=== PATIENT | female | born 1975 | race Caucasian/White ===

== ENCOUNTER → 2018-07-15 18:14 | Outpatient (CLI) | payer MEDICAID, SELFPAY ==
[2018-07-15 18:52] LABS: Basophils % 0.5 % (0.1-2.0); Eosinophils % 0.5 % (0.1-12.0); Hematocrit 39.1 % (37.0-47.0); Hemoglobin 12.9 g/dL (12.2-16.2); Lymphocytes # 2.1 K/mm3 (0.7-4.5); Lymphocytes % 24.7 % (10-50); Mean Corpuscular Hemoglobin 30.1 pg (27.0-31.2); Mean Corpuscular Volume 91.3 fl (81-99); Mean Platelet Volume 9.3 fl (7.4-10.4); Monocytes # 0.4 K/mm3 (0.1-1.0); Monocytes % 4.2 % (1.7-9.3); Neutrophils % 70.1 % (37.0-80.0); Platelet Count 294 K/mm3 (142-424); Red Blood Count 4.29 M/mm3 (4.20-5.40); Red Cell Distribution Width 13.4 % (11.5-17.5); White Blood Count 8.5 K/mm3 (4.8-10.8)
[2018-07-15 19:22] LABS: Alanine Aminotransferase 22 U/L (12-78); Albumin Level 4.2 gm/dL (3.4-5.0); Albumin/Globulin Ratio 1.2 (1.1-1.8); Alkaline Phosphatase 110 U/L (46-116); Anion Gap 14.3 mEq/L (5-15); Aspartate Amino Transferase 18 U/L (15-37); Bilirubin,Total 0.4 mg/dL (0.2-1.0); Blood Urea Nitrogen 6 mg/dL (7-18); Calcium 8.9 mg/dL (8.5-10.1); Carbon Dioxide 29 mmol/L (21.0-32.0); Chloride 102 mmol/L (98-107); Chol/HDL Ratio 4.8 (1-3.5); Cholesterol 152 mg/dL (140-200); Creatinine,Serum 0.67 mg/dL (0.55-1.02); Estimated Glomerular Filt Rate 97 ml/min (>60); Free T4 (Free Thyroxine) 1.02 ng/dl (0.76-1.46); GFR (African American) 117 ML/MIN (>60); Globulin 3.5 gm/dl (1.3-3.2); Glucose 105 mg/dL (74-106); HDL Cholesterol 32 mg/dL (29-89); LDL Cholesterol 102 mg/dL (0-130); Potassium 3.3 mmoL/L (3.5-5.1); Sodium 142 mmol/L (136-145); Thyroid Stimulating Hormone 0.12 uIU/ml (0.358-3.740); Total Protein,Serum 7.7 gm/dL (6.4-8.2); Triglycerides 91 mg/dL (30-200); VLDL Cholesterol 18 mg/dL (0-40)
[2018-07-17 08:18] LABS: Hep A Ab, IgM Negative (Negative); Hepatitis B Core Antibody IgM Negative (Negative); Hepatitis B Surface Antigen Negative (Negative)
[2018-07-17 10:06] LABS: Hepatitis C Antibody <0.1 s/co ratio (0.0-0.9); Vitamin D 25 Hydroxy 23.5 ng/mL (30.0-100.0)
== END ==
PROVIDERS: PCP Emergency Medicine; Visit Provider Emergency Medicine
DX: I10 Essential (primary) hypertension (principal); E55.9 Vitamin D deficiency, unspecified
CPT/HCPCS: 80053; 80061; 80074; 82652; 84439; 84443; 85025

== ENCOUNTER → 2018-07-27 11:24 | Outpatient (CLI) | payer MEDICAID, SELFPAY ==
[2018-07-27 14:04] LABS: Anion Gap 15.8 mEq/L (5-15); Blood Urea Nitrogen 3 mg/dL (7-18); Calcium 8.4 mg/dL (8.5-10.1); Carbon Dioxide 25 mmol/L (21.0-32.0); Chloride 103 mmol/L (98-107); Creatinine,Serum 0.77 mg/dL (0.55-1.02); Estimated Glomerular Filt Rate 82 ml/min (>60); GFR (African American) 99 ML/MIN (>60); Glucose 101 mg/dL (74-106); Potassium 3.8 mmoL/L (3.5-5.1); Sodium 140 mmol/L (136-145); Thyroid Stimulating Hormone 0.34 uIU/ml (0.358-3.740)
== END ==
PROVIDERS: Visit Provider Physician Assistant
DX: E87.6 Hypokalemia (principal); R79.89 Other specified abnormal findings of blood chemistry
CPT/HCPCS: 36415; 80048; 84443

== ENCOUNTER → 2018-08-27 17:25 | Outpatient (CLI) | payer MEDICAID, SELFPAY ==
[2018-08-27 18:23] LABS: Amphetamine/Metha Screen,Urine Negative ng/mL (<1000); Barbiturates Screen,Urine Negative ng/mL (<200); Benzodiazepines Screen,Urine Positive ng/mL (<200); Cannabinoid Screen,Urine Positive ng/mL (<50); Cocaine Screen,Urine Negative ng/mL (<300); Methadone Screen,Urine Negative ng/mL (<300); Opiate Screen,Urine Negative ng/mL (<300); Phencyclidine Screen,Urine Negative ng/mL (<25)
[2018-09-04 09:13] LABS: Alprazolam Negative (Cutoff=100); Benzodiazepines Positive ng/mL (Cutoff=100); Clonazepam Positive (.); Flurazepam Negative (Cutoff=100); Lorazepam Negative (Cutoff=100); Midazolam Negative (Cutoff=100); Temazepam Negative (Cutoff=100); Triazolam Negative (Cutoff=100)
[2018-09-04 14:42] LABS: Clonazepam Confirm 825 ng/mL (Cutoff=100)
== END ==
PROVIDERS: Visit Provider Emergency Medicine
DX: Z79.899 Other long term (current) drug therapy (principal); F41.9 Anxiety disorder, unspecified
CPT/HCPCS: 80305; 80346

== ENCOUNTER → 2018-12-03 17:00 | Outpatient (CLI) | payer SELFPAY ==
[2018-12-04 11:51] LABS: Amphetamine/Metha Screen,Urine Negative ng/mL (<1000); Barbiturates Screen,Urine Negative ng/mL (<200); Benzodiazepines Screen,Urine Negative ng/mL (<200); Cannabinoid Screen,Urine Positive ng/mL (<50); Cocaine Screen,Urine Negative ng/mL (<300); Methadone Screen,Urine Negative ng/mL (<300); Opiate Screen,Urine Negative ng/mL (<300); Phencyclidine Screen,Urine Negative ng/mL (<25)
[2018-12-10 09:10] LABS: Alprazolam Negative (Cutoff=100); Benzodiazepines Positive ng/mL (Cutoff=100); Clonazepam Positive (.); Flurazepam Negative (Cutoff=100); Lorazepam Negative (Cutoff=100); Midazolam Negative (Cutoff=100); Temazepam Negative (Cutoff=100); Triazolam Negative (Cutoff=100)
[2018-12-12 17:01] LABS: Clonazepam Confirm 114 ng/mL (Cutoff=100)
== END ==
LOC: LAB.DROPOF 12-04 08:10
PROVIDERS: Visit Provider Emergency Medicine
DX: F41.9 Anxiety disorder, unspecified (principal)
CPT/HCPCS: 80305; 80346

== ENCOUNTER → 2019-03-21 09:45 | Outpatient (CLI) | payer OTHER, SELFPAY | PROVIDERS: PCP Emergency Medicine; Visit Provider Emergency Medicine | DX: J44.9 Chronic obstructive pulmonary disease, unspecified (principal) | CPT/HCPCS: 94060; 94618; 94726; 94729 ==

== ENCOUNTER → 2019-09-15 17:22 | Outpatient (CLI) | payer OTHER, SELFPAY ==
[2019-09-15 18:02] LABS: Basophils # 0.1 K/mm3 (0-0.2); Basophils % 0.5 % (0.1-2.0); Eosinophils # 0.1 K/mm3 (0.0-0.4); Eosinophils % 1.1 % (0.1-12.0); Hematocrit 39.5 % (37.0-47.0); Hemoglobin 12.9 g/dL (12.2-16.2); Lymphocytes # 2.9 K/mm3 (0.7-4.5); Lymphocytes % 26.7 % (10-50); Mean Corpuscular HGB Conc 32.7 g/dL (31.8-35.4); Mean Corpuscular Hemoglobin 30.4 pg (27.0-31.2); Mean Platelet Volume 9.6 fl (7.4-10.4); Monocytes # 0.7 K/mm3 (0.1-1.0); Monocytes % 6.1 % (1.7-9.3); Neutrophils # 7.1 K/mm3 (1.8-7.8); Neutrophils % 65.7 % (37.0-80.0); Platelet Count 297 K/mm3 (142-424); Red Blood Count 4.25 M/mm3 (4.20-5.40); Red Cell Distribution Width 13.9 % (11.5-17.5); White Blood Count 10.8 K/mm3 (4.8-10.8)
[2019-09-15 18:47] LABS: Alanine Aminotransferase 13 U/L (12-78); Albumin Level 4.4 g/dl (3.5-5.0); Albumin/Globulin Ratio 1.5 (1.1-1.8); Alkaline Phosphatase 106 U/L (38-126); Anion Gap 12.8 mEq/L (5-15); Aspartate Amino Transferase 28 U/L (14-36); Bilirubin,Total 0.5 mg/dl (0.2-1.3); Blood Urea Nitrogen 9 mg/dl (7-17); Calcium 9.4 mg/dl (8.4-10.2); Carbon Dioxide 27 mmol/L (22.0-30.0); Chloride 106 mmol/L (98-107); Chol/HDL Ratio 3.6 (1-3.5); Cholesterol 169 mg/dl (140-200); Estimated Glomerular Filt Rate 109 ml/min (>60); GFR (African American) 132 ML/MIN (>60); Globulin 2.9 g/dL (1.3-3.2); Glucose 65 mg/dl (74-100); HDL Cholesterol 47 mg/dl (40-60); Potassium 3.8 mmoL/L (3.5-5.1); Sodium 142 mmol/L (136-145); Total Protein,Serum 7.3 g/dl (6.3-8.2); Triglycerides 131 mg/dl (30-150); VLDL Cholesterol 26 mg/dL (0-40)
[2019-09-15 18:59] LABS: Direct LDL Cholesterol 100.15 mg/dL (100-129)
[2019-09-15 19:05] LABS: 25-OH Vitamin D, Total 42.5 ng/mL (30-100); Free T4 (Free Thyroxine) 0.85 ng/dl (0.78-2.19)
[2019-09-15 19:20] LABS: Thyroid Stimulating Hormone 0.41 uIU/mL (0.465-4.68)
== END ==
PROVIDERS: Visit Provider Emergency Medicine
DX: I10 Essential (primary) hypertension (principal); E55.9 Vitamin D deficiency, unspecified
CPT/HCPCS: 80053; 80061; 82306; 84439; 84443; 85025

== ENCOUNTER → 2019-09-30 08:33 | Outpatient (CLI) | payer OTHER, SELFPAY ==
--- NOTE | 2019-09-30 08:34 | MM_ITS ---
PROCEDURE: MM DIG SCREENING MAMM BI W/CAD Digital Breast Tomosynthesis Included CLINICAL INDICATION: screening There is a history of breast cancer patient's paternal aunt. COMPARISON: No exams were available for comparison TECHNIQUE: Standard CC and MLO images and 3D Tomosynthesis was obtained. R2 CAD reviewed. FINDINGS: There is a markedly dense and heterogenic parenchymal pattern most consistent with prominent diffuse fibrocystic changes. Miguel images are most helpful in this type of dense breast parenchyma. There is 1 and possibly 2 dominant spherical lesions upper-outer quadrant right breast likely cysts. Recommend the patient return for spot-compression MLO and CC views and ultrasound. There is also a possible nodular lesion outer quadrant left breast at approximately the 3 o'clock position in would recommend spot-compression MLO and CC views and ultrasound for the this lesion as well. There are no suspicious microcalcifications. IMPRESSION: Markedly dense parenchymal pattern could consistent with diffuse fibrocystic changes with possible cystic versus solid lesions in each breast BI-RAD Category: 0 Need Additional Imaging Evaluation FOLLOW-UP: IMM Immediate Follow-up Recommended (A letter has been sent to the patient regarding results of the study.) Dictated Dr. Talon Lou MD 10/04/2019 12:15 Dr. Talon Isaac MD in [place] 10/04/2019 12:15
== END ==
PROVIDERS: PCP Emergency Medicine; Visit Provider Emergency Medicine
DX: Z12.31 Encounter for screening mammogram for malignant neoplasm of breast (principal)
CPT/HCPCS: 77063; 77067

== ENCOUNTER → 2019-11-04 14:14 | Outpatient (CLI) | payer OTHER, SELFPAY ==
--- NOTE | 2019-11-04 14:14 | US_ITS ---
PROCEDURE: MM DIG MAMM BI DX W/CAD Digital Breast Tomosynthesis Included CLINICAL INDICATION: spot compression views COMPARISON: MG MM DIG SCREENING MAMM BI W/CAD from 09/30/2019 US US BREAST LT COMPLETE from 11/04/2019 US US BREAST RT COMPLETE from 11/04/2019 TECHNIQUE: Spot-compression views of both breasts along with bilateral breast ultrasound FINDINGS: Right breast: There is a persistent 12 x 14 mm opacity in the upper outer aspect of the right breast on the spot compression view. There is very dense fibroglandular tissue which decreases the sensitivity of mammography. Right breast ultrasound: Complicated cyst at 10 o'clock which is 6 x 4 mm. 6 x 5 mm cyst at 11 o'clock. Complicated cyst or cluster small cyst at 10 o'clock measuring 11 x 6 mm which may correspond to 1 of the mammographic abnormalities. There are 2 additional complicated cyst at 10 o'clock at 7 and 8 mm. At 6 o'clock there is a 11 mm cyst. Left breast: Very dense fibroglandular tissue decreasing the sensitivity of mammography. The asymmetry noted on the screening exam appears somewhat compress out on the spot compression view. There is however some residual density in this area. Left breast ultrasound: 4 mm cyst upper outer quadrant at 2 o'clock, complicated cyst at 3 o'clock at 7 mm. 3 mm cyst at 3 o'clock. 4 mm cyst at 6 o'clock. 5 mm cyst at 6 o'clock IMPRESSION: There are bilateral complicated cysts which may account for the mammographic abnormality noted on the screening exam. Recommend six-month bilateral mammographic and sonographic follow-up BI-RAD Category: 3 Probably Benign Finding Short Term Follow-up FOLLOW-UP: 6M 6Month Follow-up (A letter has been sent to the patient regarding results of the study.) Dictated by: Kwasi Brewer MD 11/10/2019 09:16 Kwasi Brewer MD in [place] 11/10/2019 09:16
== END ==
PROVIDERS: PCP Emergency Medicine; Visit Provider Emergency Medicine
DX: R92.8 Other abnormal and inconclusive findings on diagnostic imaging of breast (principal)
CPT/HCPCS: 76641; 77062; 77066; G0279

== ENCOUNTER → 2020-03-03 11:03 | Outpatient (CLI) | payer OTHER, SELFPAY ==
[2020-03-03 11:41] LABS: Basophils # 0.1 K/mm3 (0-0.2); Basophils % 0.4 % (0.1-2.0); Eosinophils % 0.2 % (0.1-12.0); Hematocrit 40.1 % (37.0-47.0); Hemoglobin 13.4 g/dL (12.2-16.2); Lymphocytes # 1.3 K/mm3 (0.7-4.5); Lymphocytes % 10.2 % (10-50); Mean Corpuscular HGB Conc 33.4 g/dL (31.8-35.4); Mean Corpuscular Hemoglobin 31.4 pg (27.0-31.2); Mean Platelet Volume 8.8 fl (7.4-10.4); Monocytes # 0.4 K/mm3 (0.1-1.0); Neutrophils # 11.2 K/mm3 (1.8-7.8); Neutrophils % 86.3 % (37.0-80.0); Platelet Count 283 K/mm3 (142-424); Red Blood Count 4.26 M/mm3 (4.20-5.40); Red Cell Distribution Width 14.3 % (11.5-17.5)
[2020-03-03 11:43] LABS: MANUAL DIFFERENTIAL MANUAL DIFFERENTIAL (MANUAL DIFF)
[2020-03-03 12:08] LABS: Lymphocytes % 14 % (10-50); Monocytes % 1 % (2-9); Neutrophils % 85 % (42-76); Platelet Estimate Normal; RBC Morphology Normal; Total Cells Counted 100
[2020-03-03 12:55] LABS: Chloride 101 mmol/L (98-107); Sodium 142 mmol/L (136-145)
[2020-03-03 12:58] LABS: Blood Urea Nitrogen 7 mg/dl (7-17); Estimated Glomerular Filt Rate 109 ml/min (>60); GFR (African American) 131 ML/MIN (>60)
[2020-03-03 12:59] LABS: Anion Gap 13.9 mEq/L (5-15); Calcium 9.6 mg/dl (8.4-10.2); Carbon Dioxide 30 mmol/L (22.0-30.0); Glucose 127 mg/dl (74-100)
[2020-03-03 13:06] LABS: Potassium 2.9 mmoL/L (3.5-5.1)
[2020-03-03 13:09] LABS: Coronavirus 19 IgG Antibody Negative (Negative); Coronavirus 19 IgM Antibody Negative (Negative)
== END ==
PROVIDERS: Visit Provider Otolaryngology
DX: Z01.818 Encounter for other preprocedural examination (principal); Z03.818 Encounter for observation for suspected exposure to other biological agents ruled out; J37.0 Chronic laryngitis; L57.0 Actinic keratosis
CPT/HCPCS: 36415; 80048; 85007; 85025; 86328

== ENCOUNTER 2020-03-04 06:34 | Day surgery (SDC) | payer OTHER, SELFPAY ==
[2020-03-02 10:41] VITALS: BMI 21.4
[2020-03-04] VITALS (11 sets, daily range): BP systolic 133–153; BP diastolic 78–95; PULSE 61–79; RESP 12–18; TEMP 36.2–36.4; O2SAT 94–100
[2020-03-04 07:45] LABS: Potassium 2.5 mmoL/L (3.5-5.1)
--- NOTE | 2020-03-04 09:56 | HMH.OPNOTE ---
Date of procedure: 03/04/20 Pre-op Diagnosis:: 1. Tobacco laryngitis 2. Hoarseness 3. Polypoid thickening right false vocal cord 4. Chronic hypokalemia Post-op Diagnosis:: same Procedure performed:: 1. Microlaryngoscopy with biopsy of the right false vocal cord Surgeon:: Dmitri Lui MD DIE STORAGE CLERK:: Austin Kim Anesthesia: GETA Estimated blood loss (mL): 1 Operative findings:: same Operative note:: With the patient under general anesthesia maintained with the Endo laryngeal tube suitable for microlaryngoscopy's the SlimLine laryngoscope was introduced. The hypopharynx was normal. Both vocal cords were normal. The right false vocal cord was thickened and accordingly biopsies were taken from it and submitted. The left false vocal vocal cord was normal. Blood loss was less than 1 cc and stopped with cottonoids soaked in epinephrine. The patient had 1 g of Ancef and 12 mg of Decadron preoperatively. And tolerated the procedure well. Dr. Dmitri Lui Condition: stable Disposition: PACU Complications:: none
--- NOTE | 2020-03-04 10:08 | HMH.ANESCL ---
[facility] Anesthesia Checklist - Structural Data Admitted From: Home Planned Operative Procedure/s: microlaryngoscopy Consent for Planned Operative Procedure(s) Verified: Yes - Additional verifications Anesthesia Reactions: No Hx Blood Transfusions: No Blood Transfusion Reaction: No - Airway Assessment C-Spine Mobility Assessed: Yes TMJ Mobility Assessed: Yes Dentition: Dentures-poor fitting - Neurological Assessment Level of Consciousness: Awake, Alert, Appropriate - Anesthesia Plan Anesthesia Risk discussed: Yes Anesthesia Plan: Verified ASA Class: III Anesthesia Type: General [facility] History I have reviewed the patient's past medical history: Yes Medical History: Reports:: Anxiety, Chronic Obstructive Pulmonary Disease (COPD), Depression, Gastroesophageal Reflux Disease(GERD), Hypertension Denies:: Cancer, Diabetes Mellitus Type 1, Diabetes Mellitus Type 2, Internal Pacemaker, MRSA, Seizures *Have you ever received a pneumonia vaccine?: No *Have you received a flu vaccine this season?: No Other Medical History: Denies: Blood Transfusion Reaction Anesthesia experience/problems:: none Laterality Cases: Bilateral: Tonsillectomy Other Surgeries: Yes: , Hysterectomy-Partial, Other. No: Pacemaker Amputation: No Fractures: Yes - *Social History Last grade of school completed: Some college Smoking Status: Current every day smoker Tobacco Type: cigarettes # Packs/Day (cigarettes): 1 Alcohol Intake: never Substance Use Type: denies use *Occupational Status:: other Housing: other Household Members: family *Travel in the last 8 weeks: None - Psychiatric History Pschychiatric History:: Reports:: Anxiety, Depression Family Hx:: Cancer, Diabetes, Heart Attack, Hyperlipidemia, Hypertension, Kidney Disease, Stroke, Thyroid Disorder, Asthma
--- NOTE | 2020-03-04 10:09 | P.PN_ITS ---
[facility] Anesthesia Record Part I Intake, IV Amount: 1,000 Estimated blood loss (mL): 0 Urine output (mL): 0 Blood Pressure: 153/88 SaO2: 95 Pulse Rate: 79 Respiratory Rate: 12 Temperature: 97.4 F Patient is:: Awake, Stable Stable to PACU at:: 10:05
--- NOTE | 2020-03-04 17:54 | P.PN_ITS ---
[facility] Anesthesia Record Part II Discharge Time: 10:35 Destination: Surgical Day Care (OP Surgery) PACU nurse assessment reviewed?: Yes Patient Condition:: Good Anesthesia Complications:: None Swallowing reflex intact?: Yes Cyanosis?: No Blood Pressure: 136/78 Pulse Rate: 62 Temperature: 97.5 F Mental Status: Alert & Oriented Pain level:: 6 Nausea and/or vomitting:: None Intake, IV Amount: 0
== END 2020-03-04 11:10 | disposition home or self-care (01) ==
LOC: OR 06:34
PROVIDERS: PCP Emergency Medicine; Visit Provider Otolaryngology
PROC: 0CBS8ZX Excision of Larynx, Via Natural or Artificial Opening Endoscopic, Diagnostic (ICD-10-PCS; CPT 31535; principal; 2020-03-04 08:45)
DX: J04.0 Acute laryngitis (principal); E87.6 Hypokalemia; J44.9 Chronic obstructive pulmonary disease, unspecified; K21.9 Gastro-esophageal reflux disease without esophagitis; I10 Essential (primary) hypertension; F41.9 Anxiety disorder, unspecified; F32.9 Major depressive disorder, single episode, unspecified; Z72.0 Tobacco use; Z80.9 Family history of malignant neoplasm, unspecified; Z83.3 Family history of diabetes mellitus; Z82.49 Family history of ischemic heart disease and other diseases of the circulatory system; Z83.438 Family history of other disorder of lipoprotein metabolism and other lipidemia; Z82.5 Family history of asthma and other chronic lower respiratory diseases; Z83.49 Family history of other endocrine, nutritional and metabolic diseases
CPT/HCPCS: 31535; 84132; 96374; 96375

== ENCOUNTER → 2020-03-24 13:13 | Outpatient (CLI) | payer OTHER, SELFPAY ==
[2020-03-24 13:44] LABS: Basophils # 0.1 K/mm3 (0-0.2); Basophils % 0.6 % (0.1-2.0); Eosinophils # 0.1 K/mm3 (0.0-0.4); Eosinophils % 0.9 % (0.1-12.0); Hematocrit 38.9 % (37.0-47.0); Hemoglobin 12.2 g/dL (12.2-16.2); Lymphocytes # 2.3 K/mm3 (0.7-4.5); Mean Corpuscular HGB Conc 31.3 g/dL (31.8-35.4); Mean Corpuscular Hemoglobin 30.2 pg (27.0-31.2); Mean Corpuscular Volume 96.5 fl (81-99); Mean Platelet Volume 8.3 fl (7.4-10.4); Monocytes # 0.5 K/mm3 (0.1-1.0); Monocytes % 4.9 % (1.7-9.3); Neutrophils # 6.6 K/mm3 (1.8-7.8); Neutrophils % 69.5 % (37.0-80.0); Platelet Count 261 K/mm3 (142-424); Red Blood Count 4.03 M/mm3 (4.20-5.40); Red Cell Distribution Width 13.8 % (11.5-17.5); White Blood Count 9.5 K/mm3 (4.8-10.8)
[2020-03-24 14:52] LABS: Coronavirus 19 IgG Antibody Negative (Negative); Coronavirus 19 IgM Antibody Negative (Negative)
== END ==
PROVIDERS: Visit Provider Otolaryngology
DX: Z01.812 Encounter for preprocedural laboratory examination (principal); Z20.822 Contact with and (suspected) exposure to COVID-19; L98.9 Disorder of the skin and subcutaneous tissue, unspecified
CPT/HCPCS: 36415; 85025; 86328

== ENCOUNTER 2020-03-25 07:43 | Day surgery (SDC) | payer OTHER, SELFPAY ==
[2020-03-24 09:51] VITALS: BMI 24.7
[2020-03-25 08:15] VITALS: BP 127/67; PULSE 47; RESP 18; TEMP 36.3; O2SAT 100
--- NOTE | 2020-03-25 09:25 | HMH.ANESCL ---
[facility] Anesthesia Checklist - Patient Identification Patient Identification: Arm Band, Verbal (Name & ) - Structural Data Admitted From: Home Planned Operative Procedure/s: home Consent for Planned Operative Procedure(s) Verified: Yes Verified Documents: History and Physical - NPO Status Verified Time NPO: 00:00 - Additional verifications Patient : No Anesthesia Reactions: No Hx Blood Transfusions: No Blood Transfusion Reaction: No Cephalosporin Allergy: No Previous Colonoscopy: Yes - Cardiovascular Assessment Heart Sounds: S1 & S2 Pulse Strength: Baseline Pulse Rhythm: Regular Peripheral Edema: No - Airway Assessment C-Spine Mobility Assessed: Yes TMJ Mobility Assessed: Yes Dentition: Edentulous - Neurological Assessment Level of Consciousness: Awake, Alert, Appropriate Hx Seizures: No Numbness or tingling in extremities: No - Anesthesia Plan Anesthesia Risk discussed: Yes Anesthesia Plan: Verified ASA Class: III Anesthesia Type: MAC [facility] History I have reviewed the patient's past medical history: Yes Medical History: Reports:: Anxiety, Chronic Obstructive Pulmonary Disease (COPD), Depression, Gastroesophageal Reflux Disease(GERD), Hypertension Denies:: Cancer, Diabetes Mellitus Type 1, Diabetes Mellitus Type 2, Internal Pacemaker, MRSA, Seizures *Have you ever received a pneumonia vaccine?: No *Have you received a flu vaccine this season?: No Other Medical History: Denies: Blood Transfusion Reaction Anesthesia experience/problems:: none Laterality Cases: Bilateral: Tonsillectomy Other Surgeries: Yes: , Hysterectomy-Partial, Other. No: Pacemaker Amputation: No Fractures: Yes - *Social History Last grade of school completed: Some college Smoking Status: Current every day smoker Tobacco Type: cigarettes # Packs/Day (cigarettes): 1 Alcohol Intake: never Alcohol Intake Frequency:: holidays/special occasions only Substance Use Type: denies use *Occupational Status:: other Housing: other Household Members: family *Travel in the last 8 weeks: None - Psychiatric History Pschychiatric History:: Reports:: Anxiety, Depression Family Hx:: Cancer, Diabetes, Heart Attack, Hyperlipidemia, Hypertension, Kidney Disease, Stroke, Thyroid Disorder, Asthma
[2020-03-25 10:43] VITALS: BP 140/82; PULSE 64; RESP 18; TEMP 36.6; O2SAT 98
[2020-03-25 10:58] VITALS: BP 166/96; PULSE 64; RESP 18; TEMP 36.6; O2SAT 100
[2020-03-25 11:21] VITALS: BP 148/98; PULSE 65; RESP 18; TEMP 36.6; O2SAT 100
--- NOTE | 2020-03-25 13:26 | P.OP_ITS ---
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 Post-op Diagnosis:: Same Procedure performed:: Excision of neoplasm right judaism 4.2 cm with geometric plastic repair tissue rearrangement Surgeon:: Dmitri Lui MD CENTRIFUGAL CHILLER TECHNICIAN:: Eliot Adams Anesthesia: MAC Estimated blood loss (mL): 5 Operative findings:: Same Operative note:: The right side of the face was prepped and draped the eyes were protected with Steri-Strips the perilesional area was infiltrated with 3 cc of 2% lidocaine con taining epinephrine the lesion was marked out on the Jose measured 4.2 cm in length the arlene out was incised and the lesion was excised and submitted. Medial and lateral incisions were made and a tissue rearrangement geometric plastic repair was done with interrupted 4-0 nylon sutures. A Dermabond dressing was applied and the patient was sent to recovery in good general condition. Condition: stable Disposition: PACU Complications:: None
== END 2020-03-25 11:21 | disposition home or self-care (01) ==
LOC: OR 07:44
PROVIDERS: PCP Emergency Medicine; Visit Provider Otolaryngology
PROC: (CPT 14040; principal; 2020-03-25 09:45)
DX: D22.39 Melanocytic nevi of other parts of face (principal); J44.9 Chronic obstructive pulmonary disease, unspecified; I10 Essential (primary) hypertension; K21.9 Gastro-esophageal reflux disease without esophagitis; F41.9 Anxiety disorder, unspecified; F32.9 Major depressive disorder, single episode, unspecified; Z72.0 Tobacco use; Z80.9 Family history of malignant neoplasm, unspecified
CPT/HCPCS: 14040; 96374; 96375

== ENCOUNTER → 2020-04-07 15:24 | Outpatient (CLI) | payer OTHER, SELFPAY | PROVIDERS: PCP Emergency Medicine; Visit Provider Emergency Medicine | DX: Z20.822 Contact with and (suspected) exposure to COVID-19 (principal) | CPT/HCPCS: U0003 ==

== ENCOUNTER → 2020-04-16 15:46 | Outpatient (CLI) | payer OTHER, SELFPAY ==
[2020-04-16 19:50] LABS: Amphetamine/Metha Screen,Urine Negative ng/ml (<1000)
[2020-04-16 19:51] LABS: Barbiturates Screen,Urine Negative ng/ml (<200)
[2020-04-16 19:52] LABS: Benzodiazepines Screen,Urine Negative ng/ml (<200); Cannabinoid Screen,Urine Positive ng/ml (<50)
[2020-04-16 19:53] LABS: Cocaine Screen,Urine Negative ng/ml (<300)
[2020-04-16 19:54] LABS: Methadone Screen,Urine Negative ng/ml (<300); Opiate Screen,Urine Negative ng/ml (<300)
[2020-04-16 19:55] LABS: Phencyclidine Screen,Urine Negative ng/ml (<25)
== END ==
PROVIDERS: Visit Provider Emergency Medicine
DX: Z79.899 Other long term (current) drug therapy (principal)
CPT/HCPCS: 80305

== ENCOUNTER → 2020-07-12 13:41 | Outpatient (CLI) | payer OTHER, SELFPAY ==
[2020-07-12 15:00] LABS: Amphetamine/Metha Screen,Urine Negative ng/ml (<1000)
[2020-07-12 17:32] LABS: Barbiturates Screen,Urine Negative ng/ml (<200)
[2020-07-12 17:33] LABS: Benzodiazepines Screen,Urine Negative ng/ml (<200)
[2020-07-12 17:34] LABS: Cannabinoid Screen,Urine Positive ng/ml (<50); Cocaine Screen,Urine Negative ng/ml (<300)
[2020-07-12 17:35] LABS: Methadone Screen,Urine Negative ng/ml (<300)
[2020-07-12 17:36] LABS: Opiate Screen,Urine Negative ng/ml (<300); Phencyclidine Screen,Urine Negative ng/ml (<25)
== END ==
PROVIDERS: Visit Provider Emergency Medicine
DX: Z79.899 Other long term (current) drug therapy (principal)
CPT/HCPCS: 80305

== ENCOUNTER → 2020-09-27 14:35 | Outpatient (CLI) | payer OTHER, SELFPAY ==
--- NOTE | 2020-09-27 14:36 | US_ITS ---
PROCEDURE: MM DIG MAMM BI DX W/CAD Digital Breast Tomosynthesis Included CLINICAL INDICATION: 6 mth f/u Palpable abnormality with pain inferior left breast COMPARISON: MG MM DIG SCREENING MAMM BI W/CAD from 09/30/2019 MG MM DIG MAMM BI DX W/CAD from 11/04/2019 US US BREAST LT COMPLETE from 11/04/2019 US US BREAST RT COMPLETE from 11/04/2019 US US BREAST RT COMPLETE from 09/27/2020 US US BREAST LT COMPLETE from 09/27/2020 TECHNIQUE: Standard CC and MLO images and 3D Tomosynthesis was obtained. R2 CAD reviewed. FINDINGS: Right breast: There is dense fibroglandular tissue decreasing the sensitivity of mammography. Benign-appearing nodules are present bilaterally. In the lateral aspect of the right breast there is a 6 mm oval density better seen on the tomographic images and may have been present previously somewhat better seen on today's exam possibly due to positioning and compression. 7 mm nodular density in the lateral periareolar region and may account for 1 of the ultrasound abnormalities in this region. No suspicious nodules or abnormal microcalcifications skin thickening or architectural distortion. Right breast ultrasound: At 10 o'clock near the nipple there is a 6 mm cyst and a complicated 9 by 5 mm cyst. At 11 o'clock there is a 5 x 5 x 3 mm cyst which may account for the mammographic abnormality. No suspicious solid lesions are evident. Left breast: Scattered areas of asymmetry are present with dense fibroglandular tissue.. There is asymmetric density in the inferior aspect of the left breast at the area of palpable concern similar to the previous exam. 1 x 0.7 cm nodular opacity is present in the left axilla. On the tomographic images this does contain central lucency consistent with a lymph node which is slightly more prominent compared to the previous exam. Has the patient had a Covid19 vaccine and if so, which side? No suspicious nodules or abnormal microcalcifications skin thickening or architectural distortion. Left breast ultrasound: There are multiple small cysts present. A cluster small cyst noted in the 5 o'clock region of the left breast corresponding to the palpable area of concern. The cystic cluster measuring approximately 1.5 x 1 cm and is not overall significantly changed compared to the previous exam. No suspicious solid lesions are evident. IMPRESSION: BI-RAD Category: 3 Probably Benign Finding Short Term Follow-Up regarding bilateral areas of asymmetry and the slightly enlarging left axillary lymph node. FOLLOW-UP: 6M 6 Month Follow-up (A letter has been sent to the patient regarding results of the study.) Dictated by: Kwasi Brewer MD 10/04/2020 14:23 Kwasi Brewer MD in [place] 10/04/2020 14:23
== END ==
PROVIDERS: PCP Emergency Medicine; Visit Provider Emergency Medicine
DX: R92.8 Other abnormal and inconclusive findings on diagnostic imaging of breast (principal)
CPT/HCPCS: 76641; 77062; 77066; G0279

== ENCOUNTER → 2020-10-06 15:51 | Outpatient (CLI) | payer OTHER, SELFPAY ==
[2020-10-06 17:00] LABS: Benzodiazepines Screen,Urine Negative ng/ml (<200)
[2020-10-06 17:01] LABS: Amphetamine/Metha Screen,Urine Negative ng/ml (<1000)
[2020-10-06 17:02] LABS: Barbiturates Screen,Urine Negative ng/ml (<200)
[2020-10-06 17:04] LABS: Cannabinoid Screen,Urine Positive ng/ml (<50)
[2020-10-06 17:05] LABS: Cocaine Screen,Urine Negative ng/ml (<300); Methadone Screen,Urine Negative ng/ml (<300)
[2020-10-06 17:06] LABS: Opiate Screen,Urine Positive ng/ml (<300)
[2020-10-06 17:07] LABS: Phencyclidine Screen,Urine Negative ng/ml (<25)
== END ==
PROVIDERS: Visit Provider Emergency Medicine
DX: Z79.899 Other long term (current) drug therapy (principal)
CPT/HCPCS: 80305

== ENCOUNTER → 2020-11-15 14:11 | Outpatient (CLI) | payer OTHER, SELFPAY ==
[2020-11-15 15:15] LABS: Amphetamine/Metha Screen,Urine Negative ng/ml (<1000)
[2020-11-15 15:16] LABS: Barbiturates Screen,Urine Negative ng/ml (<200); Benzodiazepines Screen,Urine Negative ng/ml (<200)
[2020-11-15 15:17] LABS: Cannabinoid Screen,Urine Positive ng/ml (<50)
[2020-11-15 15:18] LABS: Cocaine Screen,Urine Negative ng/ml (<300); Methadone Screen,Urine Negative ng/ml (<300)
[2020-11-15 15:19] LABS: Opiate Screen,Urine Negative ng/ml (<300)
[2020-11-15 15:20] LABS: Phencyclidine Screen,Urine Negative ng/ml (<25)
== END ==
PROVIDERS: Visit Provider Emergency Medicine
DX: Z79.899 Other long term (current) drug therapy (principal)
CPT/HCPCS: 80305

== ENCOUNTER → 2020-11-19 13:03 | Outpatient (CLI) | payer OTHER, SELFPAY ==
--- NOTE | 2020-11-19 13:06 | XR_ITS ---
PROCEDURE: XR KNEE RT 4V CLINICAL INDICATION: RT leg pain COMPARISON: No exams were available for comparison FINDINGS: No fracture or dislocation. No lytic or blastic change. There is normal mineralization. Minimal osteoarthritic change medial compartment. Other findings:There is an intramedullary suzanna within the tibia incompletely imaged distally. The visualized portion of the suzanna has an unremarkable appearance. IMPRESSION: Minimal osteoarthritic change medial compartment, no acute finding Dictated by: Kwasi Brewer MD 11/19/2020 13:39 Kwasi Brewer MD in [place] 11/19/2020 13:39
--- NOTE | 2020-11-19 13:06 | XR_ITS ---
PROCEDURE: XR TIBIA FIBULA RT 2V CLINICAL INDICATION: RT leg pain COMPARISON: CR XR TIBIA FIBULA RT 2V from 05/17/2019 FINDINGS: There is an intramedullary suzanna spanning the length the tibia with an old healed fracture at the distal shaft of the tibia and mid to distal shaft of the fibula. Surgical clips are present along the posterior and medial aspect the mid to lower calf. IMPRESSION: Status post prior ORIF tib fib fracture with healed fractures with good alignment and no acute finding. Dictated by: Kwasi Brewer MD 11/19/2020 14:54 Kwasi Brewer MD in [place] 11/19/2020 14:55
== END ==
PROVIDERS: PCP Emergency Medicine; Visit Provider Orthopaedic Surgery
DX: M79.604 Pain in right leg (principal)
CPT/HCPCS: 73564; 73590

== ENCOUNTER → 2020-12-15 15:38 | Outpatient (CLI) | payer OTHER, SELFPAY ==
[2020-12-15 16:51] LABS: Amphetamine/Metha Screen,Urine Negative ng/ml (<1000)
[2020-12-15 16:52] LABS: Barbiturates Screen,Urine Negative ng/ml (<200)
[2020-12-15 16:53] LABS: Benzodiazepines Screen,Urine Negative ng/ml (<200); Cannabinoid Screen,Urine Positive ng/ml (<50)
[2020-12-15 16:54] LABS: Cocaine Screen,Urine Negative ng/ml (<300); Methadone Screen,Urine Negative ng/ml (<300)
[2020-12-15 16:55] LABS: Opiate Screen,Urine Positive ng/ml (<300)
[2020-12-15 16:56] LABS: Phencyclidine Screen,Urine Negative ng/ml (<25)
== END ==
PROVIDERS: Visit Provider Emergency Medicine
DX: Z79.899 Other long term (current) drug therapy (principal)
CPT/HCPCS: 80305

== ENCOUNTER → 2021-01-13 08:58 | Outpatient (CLI) | payer OTHER, SELFPAY ==
[2021-01-13 09:26] LABS: Basophils # 0.1 K/mm3 (0-0.2); Basophils % 0.8 % (0.1-2.0); Eosinophils # 0.1 K/mm3 (0.0-0.4); Eosinophils % 1.4 % (0.1-12.0); Hematocrit 39.3 % (37.0-47.0); Hemoglobin 12.8 g/dL (12.2-16.2); Lymphocytes # 1.5 K/mm3 (0.7-4.5); Lymphocytes % 19.3 % (10-50); Mean Corpuscular HGB Conc 32.5 g/dL (31.8-35.4); Mean Corpuscular Hemoglobin 31.7 pg (27.0-31.2); Mean Corpuscular Volume 97.6 fl (81-99); Mean Platelet Volume 9.2 fl (7.4-10.4); Monocytes # 0.3 K/mm3 (0.1-1.0); Monocytes % 4.3 % (1.7-9.3); Neutrophils # 5.7 K/mm3 (1.8-7.8); Neutrophils % 74.2 % (37.0-80.0); Platelet Count 255 K/mm3 (142-424); Red Blood Count 4.02 M/mm3 (4.20-5.40); Red Cell Distribution Width 13.2 % (11.5-17.5); White Blood Count 7.7 K/mm3 (4.8-10.8)
[2021-01-13 10:40] LABS: Alanine Aminotransferase 24 U/L (12-78); Albumin Level 4.1 g/dl (3.5-5.0); Albumin/Globulin Ratio 1.6 (1.1-1.8); Alkaline Phosphatase 88 U/L (38-126); Aspartate Amino Transferase 38 U/L (14-36); Bilirubin,Total 0.3 mg/dl (0.2-1.3); Blood Urea Nitrogen 3 mg/dl (7-17); Carbon Dioxide 28 mmol/L (22.0-30.0); Chloride 106 mmol/L (98-107); Estimated Glomerular Filt Rate 133 ml/min (>60); GFR (African American) 161 ML/MIN (>60); Globulin 2.5 g/dL (1.3-3.2); Glucose 117 mg/dl (74-100); Sodium 141 mmol/L (136-145); Total Protein,Serum 6.6 g/dl (6.3-8.2)
== END ==
PROVIDERS: Visit Provider Orthopaedic Surgery
DX: Z01.818 Encounter for other preprocedural examination (principal); Z20.822 Contact with and (suspected) exposure to COVID-19
CPT/HCPCS: 36415; 80053; 85025; C9803; U0003; U0005

== ENCOUNTER 2021-01-14 06:01 | Day surgery (SDC) | payer OTHER, SELFPAY ==
[2021-01-10 13:35] VITALS: BMI 21.2
[2021-01-14] VITALS (10 sets, daily range): BP systolic 131–155; BP diastolic 76–92; PULSE 56–78; RESP 12–18; TEMP 36.1–43; O2SAT 96–99
--- NOTE | 2021-01-14 06:09 | XR_ITS ---
PROCEDURE INFORMATION: Exam: XR Chest Exam date and time: 01/14/2021 6:09 AM Age: 45 years old Clinical indication: Pre-operative exam; Cardiovascular screening and respiratory screening exam; Additional info: Preop TECHNIQUE: Imaging protocol: XR of the chest. Views: 1 view. COMPARISON: CR CXR CHEST(2 VIEWS-NOT PORTABLE) 05/25/2015 2:22 PM FINDINGS: Lungs: No consolidation. Pleural spaces: No significant pleural effusion. No pneumothorax. Heart/Mediastinum: Mild cardiomegaly. Bones/joints: No displaced fracture. Soft tissues: Unremarkable. IMPRESSION: Mild cardiomegaly.
--- NOTE | 2021-01-14 06:52 | HMH.ANESCL ---
[facility] Anesthesia Checklist - Structural Data Admitted From: Home Planned Operative Procedure/s: removal hardware l tibia Consent for Planned Operative Procedure(s) Verified: Yes - Additional verifications Anesthesia Reactions: No Hx Blood Transfusions: No Blood Transfusion Reaction: No - Airway Assessment C-Spine Mobility Assessed: Yes TMJ Mobility Assessed: Yes Dentition: Dentures-good fit - Neurological Assessment Level of Consciousness: Awake, Alert, Appropriate - Anesthesia Plan Anesthesia Risk discussed: Yes Anesthesia Plan: Verified ASA Class: II Anesthesia Type: General [facility] History I have reviewed the patient's past medical history: Yes Medical History: Reports:: Anxiety, Cancer (CERVICAL), Chronic Obstructive Pulmonary Disease (COPD), Depression, Gastroesophageal Reflux Disease(GERD), Hypertension, MRSA Denies:: Diabetes Mellitus Type 1, Diabetes Mellitus Type 2, Internal Pacemaker, Seizures *Have you ever received a pneumonia vaccine?: No *Have you received a flu vaccine this season?: No Other Medical History: Denies: Blood Transfusion Reaction Anesthesia experience/problems:: none Laterality Cases: Bilateral: Tonsillectomy Other Surgeries: Yes: , Hysterectomy-Partial, Other. No: Pacemaker Amputation: No Fractures: Yes - *Social History Last grade of school completed: Some college Smoking Status: Current every day smoker Tobacco Type: cigarettes # Packs/Day (cigarettes): 2 Alcohol Intake: never Alcohol Intake Frequency:: holidays/special occasions only Substance Use Type: denies use *Occupational Status:: disabled Housing: house Household Members: family *Travel in the last 8 weeks: None - Psychiatric History Pschychiatric History:: Reports:: Anxiety, Depression Family Hx:: Cancer
--- NOTE | 2021-01-14 08:21 | XR_ITS ---
PROCEDURE: XR TIBIA FIBULA RT 2V CLINICAL INDICATION: NAVJOT- SCREWS REMOVED COMPARISON: CR XR TIBIA FIBULA RT 2V from 05/17/2019 CR XR TIBIA FIBULA RT 2V from 11/19/2020 FINDINGS: Fluoroscopy time: 0.3 minutes. Under fluoroscopic guidance screws were removed from the proximal and distal aspect the intramedullary suzanna.. IMPRESSION: Status post hardware removal Dictated by: Kwasi Brewer MD 01/14/2021 17:48 Kwasi Brewer MD in [place] 01/14/2021 17:48
--- NOTE | 2021-01-14 08:31 | P.PN_ITS ---
[facility] Anesthesia Record Part I Intake, IV Amount: 800 Estimated blood loss (mL): 0 Urine output (mL): 0 Blood Pressure: 131/89 SaO2: 99 Pulse Rate: 75 Respiratory Rate: 12 Temperature: 98.5 F Patient is:: Drowsy, Oral/Nasal airway Stable to PACU at:: 08:27
--- NOTE | 2021-01-14 08:55 | HMH.OPNOTE ---
Date of procedure: 01/14/21 Pre-op Diagnosis:: Right tibial symptomatic hardware Post-op Diagnosis:: Same Procedure performed:: Right tibial hardware removal Surgeon:: Jesus Pitt JR, MD Anesthesia: GETA Estimated blood loss (mL): 5 Operative findings:: All 4 interlocking bolts removed, confirmed fluoroscopically Operative note:: 45-year-old female status post 11 prior surgeries for an open tibia fracture. She underwent flap coverage. She has slim build, had palpable interlocking screws which were symptomatic proximally and distally. I had a discussion with her as well as her operative surgeon regarding further management, recommended interlocking bolt removal right tibia. She is amenable with the plan. We discussed the risk and benefits of surgery. Risks included but were not limited to pain, bleeding, infection, damage to adjacent structures, need for further surgery, wound healing complications, loss of limb, . Patient expressed verbal consent and written consent was obtained for the above procedure. Patient was identified in preoperative holding. Operative site was marked in indelible ink. History, physical, consent were reviewed and updated. Patient was surrendered to the anesthesia team, taken to the operative suite, placed supine on a well-padded operative table. Ipsilateral hip bump was placed as was a nonsterile thigh tourniquet. Anesthesia was induced. The operative extremity was prepped and draped in the usual sterile fashion. The operative team donned sterile gowns and gloves and a timeout was called. All in attendance agreed regarding the patient's identity, procedure, operative site. Weight-based dose of antibiotics was given prior to incision. I made an incision proximally over the palpable bolts heads, remove them with a screwdriver after dissecting through skin and subcutaneous tissue. Made a separate distal medial incision, identified the medial to lateral bolt and after dissecting through skin and subcutaneous tissue, removed it with a screwdriver. Made a separate anterior incision distally, identified the anterior to posterior bolt, removed with a screwdriver. I confirmed removal of the bolts fluoroscopically. The bolts were discarded. I copiously irrigated the wounds, closed skin with Vicryl and Monocryl suture, injected local anesthetic at the incision sites, applied Prineo and Dermabond dressing which were covered with Tegaderm dressing. Counts were correct x2. There were no apparent complications. I was present and scrubbed for the entire case. Condition: stable Disposition: PACU Complications:: None
--- NOTE | 2021-01-14 08:59 | PC.NURSE ---
[id number]-detailed report called to GONZALEZ Velazquez [id number]-pt transported to post op via stretcher with galdino rails up and left in care of GONZALEZ Velazquez with bed locked in lowest position, vss, pt stable
--- NOTE | 2021-01-14 09:28 | SUR.OPER ---
0815 Pt had implants placed at another hospital. Dr. Pitt removed 4 screws. Screws were discarded.
--- NOTE | 2021-01-17 07:01 | P.PN_ITS ---
[facility] Anesthesia Record Part II Discharge Time: 08:57 Destination: Surgical Day Care (OP Surgery) PACU nurse assessment reviewed?: Yes Patient Condition:: Good Anesthesia Complications:: None Swallowing reflex intact?: Yes Cyanosis?: No Blood Pressure: 151/87 Pulse Rate: 74 Temperature: 97.9 F Mental Status: Alert & Oriented Pain level:: 0 Nausea and/or vomitting:: None Intake, IV Amount: 0
[2021-01-17 07:02] VITALS: BP 151/87; PULSE 74; TEMP 36.6
== END 2021-01-14 09:16 | disposition home or self-care (01) ==
LOC: OR 06:02
PROVIDERS: PCP Emergency Medicine; Visit Provider Orthopaedic Surgery
PROC: (CPT 20680; principal; 2021-01-14 07:30)
DX: T84.84XA Pain due to internal orthopedic prosthetic devices, implants and grafts, initial encounter (principal); I10 Essential (primary) hypertension; J44.9 Chronic obstructive pulmonary disease, unspecified; Z79.899 Other long term (current) drug therapy; Y83.1 Surgical operation with implant of artificial internal device as the cause of abnormal reaction of the patient, or of later complication, without mention of misadventure at the time of the procedure
CPT/HCPCS: 20680; 71045; 73590; 96374; J2405

== ENCOUNTER → 2021-02-04 10:35 | Outpatient (CLI) | payer OTHER, SELFPAY ==
--- NOTE | 2021-02-04 10:40 | XR_ITS ---
PROCEDURE: XR FOOT RT MIN 3V CLINICAL INDICATION: RT foot/ankle pain COMPARISON: No exams were available for comparison FINDINGS: No fracture or dislocation. No lytic or blastic change. There is normal mineralization. The joint spaces are well-preserved. No significant degenerative/arthritic changes. No erosive changes evident. Other findings:None. IMPRESSION: No acute findings. Dictated by: Kwasi Brewer MD 02/04/2021 14:05 Kwasi Brewer MD in [place] 02/04/2021 14:05
--- NOTE | 2021-02-04 10:40 | XR_ITS ---
PROCEDURE: XR ANKLE RT MIN 3V CLINICAL INDICATION: pain in foot and ankle COMPARISON: CR XR ANKLE RT MIN 3V from 05/17/2019 FINDINGS: There is an intramedullary suzanna present within the tibia extending to the distal aspect with prominent callus formation at the distal shaft of the tibia and an old fracture of the mid to distal shaft of the fibula. Surgical clips are present along the medial aspect of the the mid to distal tibia. Lucencies noted in the distal tibia from anderson screw hose. No acute fracture or dislocation. No lytic or blastic change. The ankle joint has an unremarkable appearance. IMPRESSION: Compared to 05/17/2019 screws have been removed from the distal aspect of the intramedullary suzanna. No other significant changes apparent. Please see above for details. No acute finding of the ankle. Dictated by: Kwasi Brewer MD 02/04/2021 13:56 Kwasi Brewer MD in [place] 02/04/2021 13:56
== END ==
PROVIDERS: PCP Emergency Medicine; Visit Provider Orthopaedic Surgery
DX: M25.571 Pain in right ankle and joints of right foot (principal)
CPT/HCPCS: 73610; 73630

== ENCOUNTER → 2021-04-12 16:00 | Outpatient (CLI) | payer OTHER, SELFPAY ==
[2021-04-12 15:02] LABS: Amphetamine/Metha Screen,Urine Negative ng/ml (<1000)
[2021-04-12 15:03] LABS: Barbiturates Screen,Urine Negative ng/ml (<200)
[2021-04-12 15:05] LABS: Benzodiazepines Screen,Urine Negative ng/ml (<200); Cannabinoid Screen,Urine Positive ng/ml (<50)
[2021-04-12 15:06] LABS: Cocaine Screen,Urine Negative ng/ml (<300); Methadone Screen,Urine Negative ng/ml (<300)
[2021-04-12 15:07] LABS: Opiate Screen,Urine Positive ng/ml (<300)
[2021-04-12 15:08] LABS: Phencyclidine Screen,Urine Negative ng/ml (<25)
== END ==
PROVIDERS: Visit Provider Emergency Medicine
DX: M79.2 Neuralgia and neuritis, unspecified (principal)
CPT/HCPCS: 80305

== ENCOUNTER → 2021-06-10 19:46 | Outpatient (CLI) | payer OTHER, SELFPAY ==
[2021-06-10 13:52] LABS: Barbiturates Screen,Urine Negative ng/ml (<200); Benzodiazepines Screen,Urine Positive ng/ml (<200)
[2021-06-10 13:53] LABS: Amphetamine/Metha Screen,Urine Negative ng/ml (<1000); Cannabinoid Screen,Urine Positive ng/ml (<50)
[2021-06-10 13:54] LABS: Cocaine Screen,Urine Negative ng/ml (<300)
[2021-06-10 13:55] LABS: Methadone Screen,Urine Negative ng/ml (<300)
[2021-06-10 13:56] LABS: Opiate Screen,Urine Positive ng/ml (<300)
[2021-06-10 13:57] LABS: Phencyclidine Screen,Urine Negative ng/ml (<25)
== END ==
PROVIDERS: PCP Emergency Medicine; Visit Provider Emergency Medicine
DX: Z79.899 Other long term (current) drug therapy (principal)
CPT/HCPCS: 80305

== ENCOUNTER → 2021-08-05 14:25 | Outpatient (CLI) | payer OTHER, SELFPAY ==
[2021-08-05 15:56] LABS: Amphetamine/Metha Screen,Urine Negative ng/ml (<1000)
[2021-08-05 15:57] LABS: Barbiturates Screen,Urine Negative ng/ml (<200)
[2021-08-05 15:58] LABS: Benzodiazepines Screen,Urine Negative ng/ml (<200); Cannabinoid Screen,Urine Positive ng/ml (<50)
[2021-08-05 15:59] LABS: Cocaine Screen,Urine Negative ng/ml (<300); Methadone Screen,Urine Negative ng/ml (<300)
[2021-08-05 16:01] LABS: Opiate Screen,Urine Positive ng/ml (<300)
[2021-08-05 16:02] LABS: Phencyclidine Screen,Urine Negative ng/ml (<25)
== END ==
PROVIDERS: Visit Provider Emergency Medicine
DX: Z79.899 Other long term (current) drug therapy (principal)
CPT/HCPCS: 80305

== ENCOUNTER → 2021-10-03 07:14 | Outpatient (CLI) | payer OTHER, SELFPAY ==
[2021-10-03 16:25] LABS: Amphetamine/Metha Screen,Urine Negative ng/ml (<1000)
[2021-10-03 16:26] LABS: Barbiturates Screen,Urine Negative ng/ml (<200); Benzodiazepines Screen,Urine Negative ng/ml (<200)
[2021-10-03 16:27] LABS: Cannabinoid Screen,Urine Positive ng/ml (<50)
[2021-10-03 16:28] LABS: Cocaine Screen,Urine Negative ng/ml (<300); Methadone Screen,Urine Negative ng/ml (<300)
[2021-10-03 16:29] LABS: Opiate Screen,Urine Positive ng/ml (<300); Phencyclidine Screen,Urine Negative ng/ml (<25)
== END ==
PROVIDERS: PCP Emergency Medicine; Visit Provider Emergency Medicine
DX: Z79.899 Other long term (current) drug therapy (principal)
CPT/HCPCS: 80305

== ENCOUNTER → 2021-10-11 08:57 | Outpatient (CLI) | payer OTHER, SELFPAY ==
--- NOTE | 2021-10-11 08:57 | US_ITS ---
FINAL REPORT CLINICAL HISTORY: abdominal pain FINDINGS: Sonographic images of the right upper quadrant were obtained. The pancreas is partially obscured.The liver has an unremarkable appearance.The gallbladder appears dilated without evidence of gallstones.There is no evidence of biliary ductal dilatation.The common duct measures 3 mm. Limited images of the right kidney are unremarkable. IMPRESSION: Unremarkable right upper quadrant ultrasound. Reviewed, Interpreted and Dictated by Guerrero Lopez III, MD Transcribed by Celsa Call Authenticated and [facility]
== END ==
PROVIDERS: PCP Emergency Medicine; Visit Provider Emergency Medicine
DX: R10.9 Unspecified abdominal pain (principal)
CPT/HCPCS: 76705

== ENCOUNTER → 2021-11-16 10:26 | Outpatient (CLI) | payer OTHER, SELFPAY ==
--- NOTE | 2021-11-16 10:26 | NM_ITS ---
FINAL REPORT CLINICAL HISTORY: gall bladder dilation 10:30 am 7.98 [facility] tc cholectec pt drank ensure FINDINGS: HEPATOBILIARY SCAN WITH CCK INJECTION Following intravenous administration of approximately 7.98 of technetium Choletec, multiple scintigraphic images were obtained. The hepatic parenchymal phase shows homogeneous distribution of the tracer throughout the liver. Prompt appearance of tracer is noted in the intrahepatic and extrahepatic biliary systems. The gallbladder visualizes normal. Biliary to bowel transit is within normal limits. Following ingestion of Ensure, gallbladder ejection fraction is estimated to be 95 %. IMPRESSION: Normal gallbladder ejection fraction of 95 %. Reviewed, Interpreted and Dictated by Gino Evans MD Transcribed by Lorenzo Arrington Authenticated and [facility]
== END ==
PROVIDERS: PCP Emergency Medicine; Visit Provider Emergency Medicine
DX: K81.9 Cholecystitis, unspecified (principal)
CPT/HCPCS: 78226; A9537

== ENCOUNTER → 2021-12-02 10:55 | Outpatient (CLI) | payer OTHER, SELFPAY ==
[2021-12-02 19:59] LABS: Amphetamine/Metha Screen,Urine Negative ng/ml (<1000); Barbiturates Screen,Urine Negative ng/ml (<200)
[2021-12-02 20:00] LABS: Cannabinoid Screen,Urine Positive ng/ml (<50)
[2021-12-02 20:01] LABS: Benzodiazepines Screen,Urine Negative ng/ml (<200)
[2021-12-02 20:04] LABS: Cocaine Screen,Urine Negative ng/ml (<300)
[2021-12-02 20:05] LABS: Methadone Screen,Urine Negative ng/ml (<300); Opiate Screen,Urine Positive ng/ml (<300)
[2021-12-02 20:06] LABS: Phencyclidine Screen,Urine Negative ng/ml (<25)
== END ==
PROVIDERS: PCP Emergency Medicine; Visit Provider Emergency Medicine
DX: Z79.899 Other long term (current) drug therapy (principal)
CPT/HCPCS: 80305

== ENCOUNTER → 2022-01-30 11:33 | Outpatient (CLI) | payer OTHER, SELFPAY ==
[2022-01-30 15:17] LABS: Amphetamine/Metha Screen,Urine Negative ng/ml (<1000)
[2022-01-30 15:18] LABS: Barbiturates Screen,Urine Negative ng/ml (<200); Benzodiazepines Screen,Urine Negative ng/ml (<200)
[2022-01-30 15:19] LABS: Cannabinoid Screen,Urine Positive ng/ml (<50); Cocaine Screen,Urine Negative ng/ml (<300)
[2022-01-30 15:20] LABS: Methadone Screen,Urine Negative ng/ml (<300)
[2022-01-30 15:22] LABS: Opiate Screen,Urine Positive ng/ml (<300); Phencyclidine Screen,Urine Negative ng/ml (<25)
== END ==
PROVIDERS: PCP Emergency Medicine; Visit Provider Emergency Medicine
DX: Z79.899 Other long term (current) drug therapy (principal)
CPT/HCPCS: 80305

== ENCOUNTER → 2022-03-17 11:01 | Outpatient (CLI) | payer OTHER, SELFPAY ==
--- NOTE | 2022-03-17 11:01 | FL_ITS ---
FINAL REPORT CLINICAL HISTORY: . dysphagia FT 1:43 FINDINGS: ESOPHAGRAM HISTORY: . Acute epigastric pain. Dysphagia. PROCEDURE: The patient ingested barium. Effervescent crystals were also administered. Spot and overhead films were obtained. Fluoroscopy time: 1 minute 43 seconds. 15 radiographs were obtained. FINDINGS: There is mild narrowing of the distal esophagus with slight delay of the passage of a 13 mm barium tablet. There is no hiatal hernia. No gastroesophageal reflux was demonstrated during the exam. Esophageal dysmotility was demonstrated during the exam. IMPRESSION: Slight narrowing of the distal esophagus of uncertain significance. Esophageal dysmotility. Otherwise, unremarkable exam. Films reviewed , interpreted and dictated by Dr. Iraheta. Transcribed by David Decker PA-C. Reviewed, Interpreted and Dictated by Sahara Iraheta MD Transcribed by JIM Figueroa Authenticated and [facility]
== END ==
PROVIDERS: PCP Emergency Medicine; Visit Provider Otolaryngology
DX: R13.10 Dysphagia, unspecified (principal)
CPT/HCPCS: 74220

== ENCOUNTER → 2022-05-24 11:15 | Outpatient (CLI) | payer OTHER, SELFPAY ==
[2022-05-24 17:05] LABS: Amphetamine/Metha Screen,Urine Negative ng/ml (<1000); Barbiturates Screen,Urine Negative ng/ml (<200); Benzodiazepines Screen,Urine Negative ng/ml (<200); Cannabinoid Screen,Urine Positive ng/ml (<50); Cocaine Screen,Urine Negative ng/ml (<300); Methadone Screen,Urine Negative ng/ml (<300); Opiate Screen,Urine Positive ng/ml (<300); Phencyclidine Screen,Urine Negative ng/ml (<25)
== END ==
PROVIDERS: PCP Emergency Medicine; Visit Provider Emergency Medicine
DX: Z79.899 Other long term (current) drug therapy (principal)
CPT/HCPCS: 80305

== ENCOUNTER → 2022-06-02 15:05 | Outpatient (CLI) | payer OTHER, SELFPAY ==
--- NOTE | 2022-06-02 15:05 | MR_ITS ---
FINAL REPORT CLINICAL HISTORY: back pain LOWER BACK PAIN WITH PAIN DOWN RIGHT LEG PT ALSO STATES THAT LEFT LEG SHE HAS SOME PAIN IN, IT HAS BEEN GOING ON FOR 3-4 YEARS MULTIPLE FALLS IN THE LAST MONTH FINDINGS: Multiplanar MR imaging of the lumbar spine was performed without contrast. On the sagittal T2-weighted images, there is abnormal decreased signal throughout the lumbar discs. The vertebrae are of normal height. The vertebral alignment is normal. L1-2: There is no significant canal stenosis or neural foraminal narrowing. L2-3: Mild diffuse disc bulge is present with mild bilateral neural foraminal narrowing. L3-4: Mild diffuse disc bulge is present with mild bilateral neural foraminal narrowing. L4-5: Mild diffuse disc bulge is present with mild bilateral neural foraminal narrowing. L5-S1: There is no significant canal stenosis or neural foraminal narrowing. IMPRESSION: Diffuse disc bulges from L2-3 through L4-5 with mild bilateral neural foraminal narrowing. Reviewed, Interpreted and Dictated by Gino Evans MD Transcribed by Kaylee Alexander Authenticated and [facility]
== END ==
PROVIDERS: PCP Emergency Medicine; Visit Provider Emergency Medicine
DX: M54.9 Dorsalgia, unspecified (principal); M54.50 Low back pain, unspecified
CPT/HCPCS: 72148; 76376

== ENCOUNTER → 2022-09-18 23:00 | Outpatient (CLI) | payer OTHER, SELFPAY ==
[2022-09-18 18:55] LABS: Amphetamine/Metha Screen,Urine Negative ng/ml (<1000)
[2022-09-18 18:56] LABS: Barbiturates Screen,Urine Negative ng/ml (<200); Benzodiazepines Screen,Urine Negative ng/ml (<200)
[2022-09-18 18:57] LABS: Cannabinoid Screen,Urine Positive ng/ml (<50)
[2022-09-18 18:58] LABS: Cocaine Screen,Urine Negative ng/ml (<300); Methadone Screen,Urine Negative ng/ml (<300)
[2022-09-18 18:59] LABS: Opiate Screen,Urine Positive ng/ml (<300)
[2022-09-18 19:00] LABS: Phencyclidine Screen,Urine Negative ng/ml (<25)
== END ==
PROVIDERS: PCP Emergency Medicine; Visit Provider Emergency Medicine
DX: M79.2 Neuralgia and neuritis, unspecified (principal)
CPT/HCPCS: 80305

== ENCOUNTER → 2022-10-24 08:05 | Outpatient (CLI) | payer OTHER, SELFPAY ==
--- NOTE | 2022-10-24 08:05 | US_ITS ---
FINAL REPORT CLINICAL HISTORY: Abnormal CT FINDINGS: RIGHT UPPER QUADRANT ULTRASOUND Sonographic images of the right upper quadrant were obtained. The pancreas is partially obscured.The liver has an unremarkable appearance.The gallbladder appears normal without evidence of gallstones.The common duct is normal. Limited images of the right kidney are normal. IMPRESSION: No acute process. Reviewed, Interpreted and Dictated by Gino Evans MD Transcribed by Kaylee Alexander Authenticated and [facility]
== END ==
PROVIDERS: PCP Emergency Medicine; Visit Provider Emergency Medicine
DX: R93.89 Abnormal findings on diagnostic imaging of other specified body structures (principal); K82.8 Other specified diseases of gallbladder
CPT/HCPCS: 76705

== ENCOUNTER → 2022-11-15 06:30 | Outpatient (CLI) | payer OTHER, SELFPAY ==
[2022-11-15 21:38] LABS: Amphetamine/Metha Screen,Urine Negative ng/ml (<1000)
[2022-11-15 21:39] LABS: Barbiturates Screen,Urine Negative ng/ml (<200)
[2022-11-15 21:40] LABS: Benzodiazepines Screen,Urine Negative ng/ml (<200); Cannabinoid Screen,Urine Positive ng/ml (<50)
[2022-11-15 21:45] LABS: Cocaine Screen,Urine Negative ng/ml (<300); Methadone Screen,Urine Negative ng/ml (<300)
[2022-11-15 21:46] LABS: Opiate Screen,Urine Positive ng/ml (<300)
[2022-11-15 21:49] LABS: Phencyclidine Screen,Urine Negative ng/ml (<25)
== END ==
PROVIDERS: PCP Emergency Medicine; Visit Provider Emergency Medicine
DX: Z79.899 Other long term (current) drug therapy (principal)
CPT/HCPCS: 80305

== ENCOUNTER → 2022-12-28 10:16 | Outpatient (CLI) | payer OTHER, SELFPAY ==
--- NOTE | 2022-12-28 10:18 | NM_ITS ---
FINAL REPORT CLINICAL HISTORY: abdominal pain no stones on gb u/s no pain during cck 10:45 am 8.09 [facility] tc choletec 11:55 am 1 mcg of cck injected into lt ant COMPARISON: None FINDINGS: Sequential anterior projection images of the abdomen were obtained after the intravenous injection of 8.09 mCi technetium 99m Choletec. There is normal uptake of radiotracer by the liver. The bile ducts are visualized by 10 minutes. Gallbladder activity is seen by 10 minutes. Bowel activity is noted by 20 minutes. After 1 hour, 1.0 ?g of CCK was injected intravenously for calculation of gallbladder ejection fraction. The gallbladder ejection fraction is 86%, which is within normal limits. IMPRESSION: No evidence of cystic duct or bile duct obstruction. Normal gallbladder ejection fraction of 86%. Reviewed, Interpreted and Dictated by Guerrero Lopez III, MD Transcribed by Poly Mcginnis Authenticated and [facility]
== END ==
PROVIDERS: PCP Family Medicine; Visit Provider Emergency Medicine
DX: K21.9 Gastro-esophageal reflux disease without esophagitis (principal)
CPT/HCPCS: 78227; A9537; J2805

== ENCOUNTER → 2023-01-17 23:55 | Outpatient (CLI) | payer OTHER, SELFPAY ==
[2023-01-17 18:43] LABS: Basophils # 0.1 K/mm3 (0-0.2); Basophils % 1.1 % (0.1-2.0); Eosinophils # 0.2 K/mm3 (0.0-0.4); Eosinophils % 2.7 % (0.1-12.0); Hematocrit 40.9 % (37.0-47.0); Hemoglobin 13.5 g/dL (12.2-16.2); Lymphocytes # 2.7 K/mm3 (0.7-4.5); Lymphocytes % 35.9 % (10-50); Mean Corpuscular Hemoglobin 31.9 pg (27.0-31.2); Mean Corpuscular Volume 96.5 fl (81-99); Monocytes # 0.4 K/mm3 (0.1-1.0); Monocytes % 5.8 % (1.7-9.3); Neutrophils % 54.5 % (37.0-80.0); Platelet Count 321 K/mm3 (142-424); Red Blood Count 4.23 M/mm3 (4.20-5.40); Red Cell Distribution Width 13.6 % (11.5-17.5); White Blood Count 7.4 K/mm3 (4.8-10.8)
[2023-01-17 20:13] LABS: Hemoglobin A1C 4.9 % (4.0-6.0)
[2023-01-17 21:44] LABS: Alanine Aminotransferase 25 U/L (12-78); Albumin Level 4.4 g/dl (3.5-5.0); Albumin/Globulin Ratio 1.6 (1.1-1.8); Alkaline Phosphatase 164 U/L (38-126); Aspartate Amino Transferase 48 U/L (14-36); Bilirubin,Total 0.4 mg/dl (0.2-1.3); Blood Urea Nitrogen 4 mg/dl (7-17); Calcium 8.8 mg/dl (8.4-10.2); Carbon Dioxide 28 mmol/L (22.0-30.0); Chloride 103 mmol/L (98-107); Cholesterol 161 mg/dl (140-200); Estimated Glomerular Filt Rate 107 ml/min (>60); GFR (African American) 130 ML/MIN (>60); Globulin 2.8 g/dL (1.3-3.2); Glucose 95 mg/dl (74-100); Total Protein,Serum 7.2 g/dl (6.3-8.2); Triglycerides 114 mg/dl (30-150); VLDL Cholesterol 23 mg/dL (0-40)
[2023-01-17 21:55] LABS: Direct LDL Cholesterol 93.31 mg/dL (100-129)
[2023-01-17 22:49] LABS: Potassium 3.3 mmoL/L (3.5-5.1)
[2023-01-17 22:53] LABS: HDL Cholesterol 40 mg/dl (40-60)
[2023-01-17 22:58] LABS: Anion Gap 13.3 mEq/L (5-15); Sodium 141 mmol/L (136-145)
[2023-01-17 23:33] LABS: Thyroid Stimulating Hormone 0.86 uIU/mL (0.465-4.68)
== END ==
PROVIDERS: PCP Family Medicine; Visit Provider Family Medicine
DX: N64.59 Other signs and symptoms in breast (principal); N60.01 Solitary cyst of right breast; T14.8XXA Other injury of unspecified body region, initial encounter; Z79.899 Other long term (current) drug therapy
CPT/HCPCS: 80053; 80061; 83036; 84443; 85025; 87070; 87205

== ENCOUNTER 2023-03-01 14:35 | Outpatient (CLI) | payer OTHER, SELFPAY ==
--- NOTE | 2023-03-01 14:36 | US_ITS ---
PROCEDURE INFORMATION: Exam: US Right Breast, Complete US Left Breast, Complete MG Bilateral Diagnostic Breast Tomosynthesis Exam date and time: 03/01/2023 2:28 PM Age: 47 years old Clinical indication: Bloody discharge on RT TECHNIQUE: Imaging protocol: Complete ultrasound of all four quadrants of the right breast and the retroareolar regions, including ultrasound of the axilla when performed. Complete ultrasound of all four quadrants of the left breast and the retroareolar regions, including ultrasound of the axilla when performed. Bilateral Diagnostic tomosynthesis and 2D mammography including computer-aided detection (CAD) when performed. Unilateral or bilateral exam. COMPARISON: 1. MG MM DIG MAMM BI DX W/CAD 09/27/2020 2:42 PM 2. MG MM DIG MAMM BI DX W/CAD 11/04/2019 2:22 PM FINDINGS: MAMMOGRAPHY: The breast tissue is extremely dense, which lowers the sensitivity of mammography. There is no stellate mass, architectural distortion or suspicious microcalcifications in either breast to suggest malignancy. No skin thickening or axillary adenopathy. ULTRASOUND: Sonographic images of the left breast including the retroareolar region, all 4 quadrants and the axilla do not demonstrate any solid masses. Few scattered subcentimeter cysts are present. No architectural distortion or acoustical shadowing. No skin thickening or axillary adenopathy. IMPRESSION: No mammographic or sonographic evidence of malignancy. Further evaluation hemorrhagic nipple discharge may be obtained with breast MRI. Annual bilateral mammographic screening is recommended unless otherwise clinically indicated. ASSESSMENT: BI-RADS Category 2: Benign
== END 2023-03-01 23:59 ==
LOC: RAD 14:36
PROVIDERS: Visit Provider Surgery
DX: N60.01 Solitary cyst of right breast (principal); N64.4 Mastodynia; N64.52 Nipple discharge
CPT/HCPCS: 76641; 77062; 77066; G0279

== ENCOUNTER 2023-06-19 14:57 | Outpatient (RCR) | payer OTHER, SELFPAY ==
--- NOTE | 2023-06-19 15:49 | HMH.PTOPEV ---
PT Outpatient Evaluation Rehab PT Outpatient Evaluation Start: 06/19/23 15:03 Freq: Status: Active Protocol: Document 06/19/23 15:25 CONTRERAS (Rec: 06/19/23 15:48 CONTRERAS [id number]) E-signed By Art Soto, PT Outpatient Therapy Subjective History Subjective History Pt reports h/o chronic LBP for ~5+ yrs. Pt reports right LE was 'shattered during fall from ladder in 2016, that's when all this stuff started.' Pt reports global LBP with referred pain into 'both legs, but that right leg has had 13 surgeries so it's messed up forever anyway.' Pt reports significant decreases in overall strength and mobility saince 2016 injury/accident. New diagnosis of cancer in past 12 No months? Chief Complaint Pain,Stiff,Weakness Symptom Type Ache,Sharp,Dull,Stabbing Symptoms Relieved By Rest/Positioning,Heat Symptoms Aggravated By Standing,Bending/Stooping, Twisting,Walking,Lifting Prior Functional Limitations Lifting,Housework,Standing, Walking,Bending/Stooping Current Functional Limitations Lifting,Housework,Standing, Walking,Bending/Stooping Symptom Description Constant but Variable Level of pain today (0-10) 5 Pain scale - at its best (0-10) 5 Pain scale - at its worst (0-10) 8 Lumbopelvic Eval Posture Thoracic Spine Posture Standing Position Flattened Lumbar Spine Posture Standing Position Flattened Assistive device Assistive Devices None / NA Gait Observation General Gait Pattern Observation Antalgic Gait Palapation tenderness bilateral lumbar spinal tenderness Yes: 3/4 paraspinal tenderness Yes: 3/4 buttock tenderness Yes: 3/4 Lumbar/Sacral Palpation Findings Tenderness,Trigger Point, Muscle Guarding Accessory Movement T-spine Vertebrae Accessory Movements Central P/A [place] that Elicit Symptoms T10 bilateral T11 bilateral T12 bilateral L-spine Vertebrae Accessory Movements Central P/A [place] that [place]it Symptoms L2 bilateral L3 bilateral L4 bilateral L5 bilateral S1 bilateral Range of Motion Lumbar Spine Active Flexion Range of 0-5 Motion (degrees) Lumbar Spine Active Extension Range of 0-5 Motion (degrees) Left Lumbar Spine Lateral Flexion Active 0-15 Range of Motion (degrees) Right Lumbar Spine Lateral Flexion 0-15 Active Range of Motion (degrees) Lumbar Spine ROM Limitations Soft Tissue Tightness,Pain Manual Muscle Test Bilateral Knee Extension Strength Grade 3 Fair Knee Flexion Strength Grade 3 Fair Hip Flexion Strength Grade 3 Fair Hip Abduction Strength Grade 3 Fair Hip Adduction Strength Grade 3 Fair Ankle Dorsiflexion Strength Grade 3 Fair Special Tests Hip Piriformis Test Positive Left,Positive Right Sciatic Nerve Tension Test Positive Left,Positive Right Oswestry Index Section 1 Pain Intensity The pain comes and goes and is severe Section 2 Personal Care (Washing,Dresing) my way of washing or dressing even though it causes some pain Section 3 Lifting lifting heavy weights off the floor, but I can manage light to medium Section 4 Walking I cannot walk more than one mile wihtout increasing pain Section 5 Sitting Pain prevents me from sitting for more than one hour Section 6 Standing I cannot stand more than 1 hour without increasing pain Section 7 Sleeping Because of my pain, my normal night's sleep is less than 6 hours sleep Section 8 Social Life Pain has restricted my social life and I do not go out often Section 9 Traveling I get extra pain while traveling which compels me to seek alternate fo Section 10 Changing Degreee of Pain My pain is gradually getting worse Score and Risk Level Oswestry Sc 27 Oswestry Risk Level Severe Disability Outpatient Therapy Assessment Impairments Problems/Impairmments Palpation Tenderness,Impaired Range of Motion,Impaired Strength,Impaired Gait Pattern ,Impaired Walking,Impaired Standing,Impaired Lifting, Impaired Household Care, Subjective C/O Pain,Impaired Self Care/Self Management Prognosis Rehab Potential Fair Clinical Impression Consistent with Diagnosis Yes Short Term Goals Number of Weeks 4 Decreased Palpation Tenderness Yes: 1-2/4 lumbar paraspinals Increase Range of Motion Yes: 50% of WFL LUMBAR AROM Increase Strength Yes: 4/5 B/L LE'S Increase Ability to Walk Yes: 15MIN Increase Ability to Stand Yes: 15MIN Improve Ability For Household Care Yes: 15MIN Improve Oswestry Score Yes: 20 Decrease Subjective C/O Pain Yes: 3-4/10 W/ABOVE ACTIVITIES Patient to be Ind w/ HEP Yes Operator Supply Goals Number of Weeks 10-12 Decreased Palpation Tenderness Yes: 0-1/4 LUMBAR PARASPINALS Increase Range of Motion Yes: 75% OF WFL LUMBAR AROM Increase Strength Yes: 4+-5/5 B/L LE'S Increase Ability to Walk Yes: 30MIN Increase Ability to Stand Yes: 30MIN Improve Ability For Household Care Yes: 30MIN Improve Oswestry Score Yes: 10-15 Decrease Subjective C/O Pain Yes: 0-2/10 W/ABOVE ACTIVITIES Patient to be Ind w/ Advanced HEP Yes Outpatient Therapy Plan of Care Treatment Plan May Include Therapeutic Exercise Including Home Yes Exercise Program Manual Therapy Techniques Yes Neuromuscular Re-education Yes Therapeutic Activities to Return to Yes Previous Functional/Work Level Gait Training Yes ADL/Self Care Education Yes Mechanical Traction Yes Dry Needling Yes Thermal Modalities Yes Electrical Stimulation Yes Ultrasound/Phonophoresis Yes Iontophoresis Yes Eval/Re-Eval Yes Frequency Times per week 2-3 Duration Number of Weeks 10-12 Addendums This patient is a candidate for social No or vocational rehab? Patient/Guardian verbally acknowledges Yes understanding of treatment program and consents to further treatment? Patient/Guardian verbally acknowledges Yes understanding of diagnosis, prognosis and goals for treatment? Eval Complexity PT Charges 72963 - Moderate Complexity Shoulder/Elbow Eval Shoulder Objective Measurements Elbow Objective Measurements PHYSICIAN CERTIFICATION: I certify the specified therapy services for May are required, authorized, and reviewed every 30 days.
== END 2023-06-19 14:59 | disposition home or self-care (01) ==
LOC: PT 14:57
PROVIDERS: Visit Provider Family Medicine
DX: M54.50 Low back pain, unspecified (principal); M79.604 Pain in right leg
CPT/HCPCS: 97010; 97014; 97163; G0283

== ENCOUNTER 2024-03-11 08:37 | Outpatient (CLI) | payer OTHER, SELFPAY ==
[2024-03-11 09:06] LABS: Basophils # 0.1 K/mm3 (0-0.2); Basophils % 0.5 % (0.1-2.0); Eosinophils % 0.2 % (0.1-12.0); Hematocrit 36.5 % (37.0-47.0); Hemoglobin 12.3 g/dL (12.2-16.2); Lymphocytes # 2.2 K/mm3 (0.7-4.5); Lymphocytes % 20.8 % (10-50); Mean Corpuscular HGB Conc 33.7 g/dL (31.8-35.4); Mean Corpuscular Hemoglobin 30.8 pg (27.0-31.2); Mean Corpuscular Volume 91.3 fl (81-99); Mean Platelet Volume 10.9 fl (7.4-10.4); Monocytes # 0.5 K/mm3 (0.1-1.0); Monocytes % 4.8 % (1.7-9.3); Neutrophils # 7.8 K/mm3 (1.8-7.8); Neutrophils % 73.5 % (37.0-80.0); Platelet Count 251 K/mm3 (142-424); Red Cell Distribution Width 11.5 % (11.5-17.5); White Blood Count 10.6 K/mm3 (4.8-10.8)
[2024-03-11 10:37] LABS: Alanine Aminotransferase 39 U/L (12-78); Albumin Level 4.2 g/dl (3.5-5.0); Albumin/Globulin Ratio 1.9 (1.1-1.8); Alkaline Phosphatase 112 U/L (38-126); Amylase 52 U/L (30-110); Anion Gap 9.8 mEq/L (5-15); Aspartate Amino Transferase 55 U/L (14-36); Bilirubin,Total 0.3 mg/dl (0.2-1.3); Blood Urea Nitrogen 11 mg/dl (7-17); Calcium 9.1 mg/dl (8.4-10.2); Carbon Dioxide 32 mmol/L (22.0-30.0); Chloride 105 mmol/L (98-107); Estimated Glomerular Filt Rate 89 ml/min (>60); GFR (African American) 108 ML/MIN (>60); Globulin 2.2 g/dL (1.3-3.2); Glucose 81 mg/dl (74-100); Lipase 45 U/L (23-300); Potassium 3.8 mmoL/L (3.5-5.1); Sodium 143 mmol/L (136-145); Total Protein,Serum 6.4 g/dl (6.3-8.2)
[2024-03-12 13:09] LABS: Endomysial IgA Antibody Negative (Negative)
[2024-03-12 18:08] LABS: Deamidated Gliadin Abs, IgA 3 units (0-19); Deamidated Gliadin Abs, IgG 2 units (0-19); Tissue Transglutaminase IgA Ab <2 U/mL (0-3); Tissue Transglutaminase IgG Ab 3 U/mL (0-5)
[2024-03-13 09:10] LABS: Reticulin IgA Antibody Negative titer (Neg:<1:2.5)
== END 2024-03-11 23:59 | disposition home or self-care (01) ==
LOC: LAB 08:38
PROVIDERS: PCP Family Medicine; Visit Provider Internal Medicine Gastroenterology
DX: K74.69 Other cirrhosis of liver (principal); B19.20 Unspecified viral hepatitis C without hepatic coma; R11.2 Nausea with vomiting, unspecified; K52.9 Noninfective gastroenteritis and colitis, unspecified; K90.0 Celiac disease
CPT/HCPCS: 36415; 80053; 82150; 83516; 83690; 85025; 86255; 86256; 86671

== ENCOUNTER 2024-04-07 08:44 | Outpatient (CLI) | payer OTHER, SELFPAY ==
[2024-04-09 14:12] LABS: Calprotectin, Fecal 17 ug/g (0-120)
[2024-04-09 15:08] LABS: Pancreatic Elastase, Fecal 497 (>200)
== END 2024-04-07 23:59 | disposition home or self-care (01) ==
LOC: LAB.DROPOF 08:45
PROVIDERS: PCP Family Medicine; Visit Provider Internal Medicine Gastroenterology
DX: R11.2 Nausea with vomiting, unspecified (principal); K52.9 Noninfective gastroenteritis and colitis, unspecified; K90.0 Celiac disease
CPT/HCPCS: 82656; 83993

== ENCOUNTER 2024-04-23 07:19 | Day surgery (SDC) | payer OTHER, SELFPAY ==
[2024-04-22 10:09] VITALS: BMI 19.2
[2024-04-23 07:57] VITALS: BP 125/88; PULSE 87; RESP 18; TEMP 36.6; O2SAT 97
[2024-04-23] MEDS: LACTATED RINGERS 1000ML 1,000 ML 50 ML IV (08:15)
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
--- NOTE | 2024-04-23 08:33 | HMH.PROCNOTE ---
[facility] Procedure Note Date: 04/23/24 Time: 08:47 Procedure Note:: Upper Endoscopy Procedure Report: Esophagogastroduodenoscopy with cold biopsies Endoscopost: Darius Cuevas II, MD Referring Physician: Max Bang MD Date of Procedure: April 23, 2024 Equipment: Olympus GIF 190 standard upper endoscope Sedation: MAC sedation Indications: Mrs. Minaya is a 48-year-old female who is here for diagnostic EGD and colonoscopy. She has had longstanding digestive difficulties. 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 She was later diagnosed with IBS. At some point she was told that she had celiac disease but there are no celiac serologies. The patient does use cannabis. She is on hydrocodone. The patient has chronic nausea and vomiting with loss of appetite. She only has the vomiting once daily but has persistent nausea. She reports bloating without belching or gassiness. She has some dysphagia many years ago, her baseline weight was 125-130 pounds but presently she is 105 pounds. The patient does report generalized abdominal discomfort and some abdominal pain. She reports early satiety. The patient does have heartburn and reflux and takes omeprazole 40 mg p.o. daily and is on famotidine. She does take metoclopramide at nighttime and uses Zofran as needed. She does state the metoclopramide and Zofran helped. She also reports ongoing postprandial diarrhea which are often preceded with cramps. She reports no blood with her bowel movements but does not note some mucus. She does feel that stress and anxiety play a role. She is a tobacco user. Procedure: Prior to the procedure, a history and physical exam was performed, and patient's medications and allergies were reviewed. The risks, benefits and alternatives of the sedation and procedure were discussed with the patient. All questions were answered and informed consent was obtained. The patient was brought to the procedure room. Patient identification and proposed procedure were verified by the physician and the nurse. The patient was placed in a left lateral decubitus position and the scope was passed under direct vision. Throughout the procedure, the patient's blood pressure, pulse, and oxygen saturations were monitored continuously. The upper GI endoscopy was accomplished without difficulty. The patient tolerated the procedure well. Findings: The scope was passed directly into the upper esophagus and advanced to the third portion of the duodenum. The post bulbar duodenum and duodenal bulb were normal with normal mucosa and conniventes. Cold biopsies were taken from the first portion of duodenum and duodenal bulb to rule out celiac disease. The scope was withdrawn through a normal duodenal bulb and pylorus into the stomach. There was very mild linear reactive gastropathy of the antrum. There was very mild chronic gastritis of the body and fundus. Cold biopsies were taken from the lesser curvature to rule out H. pylori. Upon retroflexion there was no hiatal hernia. The scope was then withdrawn into the esophagus. There was no evidence of reflux esophagitis or Hansen's. The remainder of the esophageal mucosa was normal. Impression: 1. Mild linear reactive gastropathy and mild chronic gastritis Plan: I will follow-up the biopsies. There is no clear etiology for her dyspepsia and IBS. Given the fact that she has had some constitutional symptoms with weight loss and worsening symptoms, I do feel that abdominal imaging would be appropriate. I will have her undergo CT scan of the abdomen pelvis. I will proceed with diagnostic colonoscopy.
[2024-04-23 08:37] VITALS: O2SAT 99
--- NOTE | 2024-04-23 08:50 | HMH.PROCNOTE ---
[facility] Procedure Note Date: 04/23/24 Time: 09:05 Procedure Note:: Colonoscopy Procedure Report: Colonoscopy with cold snare polypectomy and cold biopsies Endoscopist: Darius Cuevas II, MD Date of Procedure: April 23, 2024 Equipment: Olympus PCF 190 pediatric colonoscope Sedation: MAC sedation Indications: Mrs. Minaya is a 48-year-old female who is here for diagnostic EGD and colonoscopy. She has had longstanding digestive difficulties. 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 She was later diagnosed with IBS. At some point she was told that she had celiac disease but there are no celiac serologies. The patient does use cannabis. She is on hydrocodone. The patient has chronic nausea and vomiting with loss of appetite. She only has the vomiting once daily but has persistent nausea. She reports bloating without belching or gassiness. She has some dysphagia many years ago, her baseline weight was 125-130 pounds but presently she is 105 pounds. The patient does report generalized abdominal discomfort and some abdominal pain. She reports early satiety. The patient does have heartburn and reflux and takes omeprazole 40 mg p.o. daily and is on famotidine. She does take metoclopramide at nighttime and uses Zofran as needed. She does state the metoclopramide and Zofran helped. She also reports ongoing postprandial diarrhea which are often preceded with cramps. She reports no blood with her bowel movements but does not note some mucus. She does feel that stress and anxiety play a role. She is a tobacco user. Procedure: Prior to the procedure, a history and physical exam was performed, and patient's medications and allergies were reviewed. The risks, benefits and alternatives of the sedation and procedure were discussed with the patient. All questions were answered and informed consent was obtained. The patient was brought to the procedure room. Patient identification and proposed procedure were verified by the physician and the nurse. The patient was placed in a left lateral decubitus position and the scope was passed under direct vision. Throughout the procedure, the patient's blood pressure, pulse, and oxygen saturations were monitored continuously. The colonoscopy was accomplished without difficulty. The patient tolerated the procedure well. Findings: On digital rectal examination there was normal rectal tone. There were no external hemorrhoids. The colonoscope was introduced through the anal canal to the rectum and advanced to the cecum. The ileocecal valve and appendiceal orifice were identified. The scope was advanced a short distance into the ileum which appeared grossly normal. The scope was then withdrawn into the colon. There were 2 polyps (cecum x 1 (4 mm) and descending x 1 (3 to 4 mm)). These were both removed via cold snare polypectomy. Cold biopsies were taken from the right colon to rule out microscopic colitis. The remaining cecum, ascending, transverse, descending, sigmoid and rectum were grossly normal. There were no other mucosal abnormalities identified. Upon retroflexion within the rectum there were small grade 1 internal hemorrhoids. The preparation was excellent throughout with [place] Preparation Score of 9. The cecal time was 12 minutes. Impression: 1. Diminutive colonic polyps x 2 Plan: I will discuss the findings with the patient and family. I do feel that this is functional dyspepsia and IBS. However, I do feel that imaging is appropriate because of her weight loss and worsening symptoms.
[2024-04-23 09:09] VITALS: BP 117/78; PULSE 84; RESP 18; TEMP 36.1; O2SAT 99
[2024-04-23 09:19] VITALS: BP 124/83; PULSE 83; RESP 18; O2SAT 99
[2024-04-23 09:29] VITALS: BP 145/96; PULSE 83; RESP 18; O2SAT 99
[2024-04-23 09:50] VITALS: BP 139/90; PULSE 83; RESP 18; O2SAT 98
[2024-04-23 09:50] LABS: Chloride 104 mmol/L (98-107); Potassium 3.2 mmoL/L (3.5-5.1); Sodium 142 mmol/L (136-145)
[2024-04-23 09:53] LABS: Blood Urea Nitrogen 5 mg/dl (7-17); Creatinine Clearance Estimated 103 mL/min (50-200); Estimated Glomerular Filt Rate 132 ml/min (>60); GFR (African American) 159 ML/MIN (>60)
[2024-04-23 09:54] LABS: Anion Gap 10.2 mEq/L (5-15); Calcium 8.7 mg/dl (8.4-10.2); Carbon Dioxide 31 mmol/L (22.0-30.0); Glucose 97 mg/dl (74-100)
== END 2024-04-23 09:50 | disposition home or self-care (01) ==
PROVIDERS: PCP Family Medicine; Visit Provider Internal Medicine Gastroenterology
PROC: 0DJ08ZZ Inspection of Upper Intestinal Tract, Via Natural or Artificial Opening Endoscopic (ICD-10-PCS; CPT 45378; principal; 2024-04-23 09:00)
DX: K31.9 Disease of stomach and duodenum, unspecified (principal); K29.70 Gastritis, unspecified, without bleeding; K63.5 Polyp of colon; K64.0 First degree hemorrhoids; R11.2 Nausea with vomiting, unspecified; R14.0 Abdominal distension (gaseous); R68.81 Early satiety; K30 Functional dyspepsia; K58.0 Irritable bowel syndrome with diarrhea
CPT/HCPCS: 43239; 45380; 45385; 80048; J7120

== ENCOUNTER 2025-01-28 08:32 | Outpatient (CLI) | payer OTHER, SELFPAY ==
[2025-01-28 16:50] LABS: Hematocrit 39.4 % (37.0-47.0); Hemoglobin 13.4 g/dL (12.2-16.2); Immature Granulocytes % 1.0 %; Mean Corpuscular HGB Conc 34.0 g/dL (31.8-35.4); Mean Corpuscular Hemoglobin 30.9 pg (27.0-31.2); Mean Corpuscular Volume 91.0 fl (81-99); Nucleated Red Blood Cells % 0 %; Platelet Count 290 K/mm3 (142-424); Red Blood Count 4.33 M/mm3 (4.20-5.40); Red Cell Distribution Width-SD 42.3 fL; White Blood Count 13.0 K/mm3 (4.8-10.8)
[2025-01-28 17:25] LABS: Alanine Aminotransferase 73 U/L (12-78); Albumin Level 4.6 g/dl (3.5-5.0); Albumin/Globulin Ratio 1.6 (1.1-1.8); Alkaline Phosphatase 125 U/L (38-126); Anion Gap 9.1 mEq/L (5-15); Aspartate Amino Transferase 118 U/L (14-36); Bilirubin,Total 0.9 mg/dl (0.2-1.3); Blood Urea Nitrogen 5 mg/dl (7-17); Calcium 9.5 mg/dl (8.4-10.2); Carbon Dioxide 27 mmol/L (22.0-30.0); Chloride 103 mmol/L (98-107); Creatinine,Serum 0.70 mg/dl (0.52-1.04); Estimated Glomerular Filt Rate 89 ml/min (>60); GFR (African American) 108 ML/MIN (>60); Globulin 2.8 g/dL (1.3-3.2); Glucose 111 mg/dl (74-100); Potassium 3.1 mmoL/L (3.5-5.1); Sodium 136 mmol/L (136-145); Total Protein,Serum 7.4 g/dl (6.3-8.2)
[2025-01-28 18:28] LABS: Anisocytosis 1+; Microcytosis 1+; Poikilocytosis 1+; Polychromasia 1+; Target Cells 1+; Total Cells Counted 100; Toxic Granulation 1+
[2025-01-28 18:29] LABS: Macrocytosis 1+; Ovalocytes 1+; Tear Drop Cells 1+
[2025-01-29 00:15] LABS: Hepatitis C Ab Qual. W/ RFX NEGATIVE (Negative)
[2025-01-30 09:14] LABS: Hepatitis B Surface Antigen Negative (Negative)
== END 2025-01-28 23:59 ==
LOC: LAB.DROPOF 01-30 08:33
PROVIDERS: PCP Family Medicine; Visit Provider Family Medicine
DX: I10 Essential (primary) hypertension (principal); Z11.59 Encounter for screening for other viral diseases; Z72.0 Tobacco use; R11.2 Nausea with vomiting, unspecified
CPT/HCPCS: 80053; 85007; 85025; 86803; 87340; 87389